=== PATIENT | male | born 1945 | race Caucasian/White ===

== ENCOUNTER 2024-08-25 04:45 | Inpatient (IN) | payer MEDICARE, OTHER ==
[~2024-08-25] VITALS: Ht 162.6 cm; Wt 80.2 kg
[2024-08-25 05:23] VITALS: RESP 11; O2SAT 95
[2024-08-25] MEDS: SODIUM CHLORIDE 0.9% 1,000 ML IV ONE (05:35)
[2024-08-25 07:35] LABS: Basophils # (auto) 0 10 ^3/uL (0-0.2); Basophils % (auto) 0.5 % (0.0-2.0); Eosinophils # (auto) 0.1 10 ^3/uL (0-0.8); Eosinophils % (auto) 1.6 % (0.0-7.0); Hematocrit 41.1 % (41.0-53.0); Hemoglobin 13.6 g/dL (13.5-17.5); Lymphocytes # (auto) 1.5 10 ^3/uL (0.4-5.4); Lymphocytes % (auto) 18.4 % (10.0-50.0); Mean Corpuscular Hemoglobin 27.9 pg (28.0-32.0); Mean Corpuscular Hgb Conc. 33.1 g/dL (32.0-36.0); Mean Corpuscular Volume 84.5 fL (80.0-100.0); Monocytes # (auto) 0.5 10 ^3/uL (0-1.3); Neutrophils # (auto) 5.7 10 ^3/uL (1.6-8.6); Neutrophils % (auto) 72.5 % (37.0-80.0); Nucleated Red Blood Cells % 0.1 %; Platelet Count (auto) 138 10^3/uL (140-450); Red Blood Cells 4.87 10^6/uL (4.5-5.90); Red Cell Distribution Width 16.3 % (11.8-14.3); White Blood Cell 7.9 10^3/uL (4.4-10.8)
[2024-08-25 07:46] LABS: Chloride 105 mmol/L (98-107); Potassium 4.4 mmol/L (3.5-5.1); Sodium 142 mmol/L (136-145)
[2024-08-25 07:47] LABS: Anion Gap 5 (5-15); Calcium 9.2 mg/dL (8.7-10.4); Carbon Dioxide 32 mmol/L (20-31)
[2024-08-25 07:52] LABS: BUN/Creatinine Ratio 15.4 (10.0-20.0); Blood Urea Nitrogen 12 mg/dL (9-23); Glucose 88 mg/dL (74-106)
[2024-08-25 08:17] VITALS: PULSE 63; RESP 18; O2SAT 94
[2024-08-25] MEDS ORDERED: ONDANSETRON HCL 4 MG/2 ML VIAL IV PRN (10:00)
[2024-08-25] MEDS ORDERED: DOCUSATE SOD 100 MG CAP PO PRN (10:00)
[2024-08-25] MEDS ORDERED: NITROGLYCERIN 0.4 MG SL TAB SL PRN (10:00)
[2024-08-25] MEDS: SODIUM CHLORIDE 0.9% 1,000 ML IV SCH (10:00)
[2024-08-25 10:03] LABS: Urine Bacteria None Seen /hpf (None Seen)
[2024-08-25 10:31] LABS: Urine Blood Negative /uL (Negative); Urine Clarity Clear (Clear); Urine Color Yellow (Yellow); Urine Mucus FEW (None Seen); Urine Protein, UAD Negative (Negative); Urine Specific Gravity 1.013 (1.001-1.035); Urine Urobilinogen Normal (Negative); Urine WBC 32 /hpf (0 - 3); Urine pH 5.5 (5.0-9.0)
[2024-08-25] MEDS: ACETAMINOPHEN 325 MG TAB PO ONE (12:00)
[2024-08-25] MEDS: HYDROcodone-ACET 5/325MG TAB PO PRN (12:00)
[2024-08-25 19:30] VITALS: PULSE 101; RESP 17; O2SAT 96
[2024-08-25] MEDS: TEMAZEPAM 15 MG CAP PO ONE (22:30)
[2024-08-26] VITALS (9 sets, daily range): BP systolic 102–145; BP diastolic 40–74; PULSE 61–99; RESP 15–18; TEMP 97.9–98.7; O2SAT 97–100
[2024-08-26] MEDS ORDERED: ALPR1TAB7 PO (05:10)
[2024-08-26] MEDS ORDERED: POTA-36 PO (05:10)
[2024-08-26] MEDS ORDERED: OXY5T GT (05:10)
[2024-08-26] MEDS ORDERED: [UNRECOGNIZED DRUG - CODE] MT (05:10)
[2024-08-26] MEDS ORDERED: PANT40TA2 PO (05:10)
[2024-08-26] MEDS ORDERED: FURO20TA3 PO (05:15)
[2024-08-26] MEDS ORDERED: AML5T PO (05:15)
[2024-08-26] MEDS ORDERED: CITA-73 PO (05:15)
[2024-08-26] MEDS ORDERED: CARV12.544 PO (05:15)
[2024-08-26] MEDS ORDERED: LISI40TA16 PO (05:15)
[2024-08-26] MEDS ORDERED: GABA400C PO (05:15)
[2024-08-26] MEDS ORDERED: ALBUAER3 IN (05:18)
[2024-08-26] MEDS ORDERED: MOMLQ GT (05:18)
[2024-08-26 06:06] LABS: Basophils # (auto) 0 10 ^3/uL (0-0.2); Basophils % (auto) 0.5 % (0.0-2.0); Eosinophils # (auto) 0.1 10 ^3/uL (0-0.8); Eosinophils % (auto) 2.1 % (0.0-7.0); Hematocrit 36.3 % (41.0-53.0); Hemoglobin 12.1 g/dL (13.5-17.5); Lymphocytes # (auto) 1.3 10 ^3/uL (0.4-5.4); Lymphocytes % (auto) 21.9 % (10.0-50.0); Mean Corpuscular Hgb Conc. 33.3 g/dL (32.0-36.0); Monocytes # (auto) 0.5 10 ^3/uL (0-1.3); Monocytes % (auto) 8.4 % (0.0-12.0); Neutrophils % (auto) 67.1 % (37.0-80.0); Platelet Count (auto) 114 10^3/uL (140-450); Red Blood Cells 4.32 10^6/uL (4.5-5.90)
[2024-08-26 06:33] LABS: Albumin 3.8 g/dL (3.2-4.8); Alkaline Phosphatase 80 U/L (46-116); Anion Gap 6 (5-15); Aspartate Aminotransferase 10 U/L (13-40); BUN/Creatinine Ratio 12.7 (10.0-20.0); Blood Urea Nitrogen 9 mg/dL (9-23); Calcium 8.9 mg/dL (8.7-10.4); Carbon Dioxide 32 mmol/L (20-31); Chloride 103 mmol/L (98-107); Glucose 79 mg/dL (74-106); Potassium 3.8 mmol/L (3.5-5.1); Sodium 141 mmol/L (136-145)
[2024-08-26 06:34] LABS: Bilirubin, Total 0.5 mg/dL (0.2-1.0); Total Protein 5.5 g/dL (5.7-8.2)
[2024-08-26 06:45] LABS: Alanine Aminotransferase < 9 U/L (7-40)
[2024-08-26] MEDS: cefTRIAXone 1GM/50ML D5W 50 ML IV SCH (12:00)
[2024-08-26 13:24] LABS: Folate (Folic Acid) 7.99 ng/mL (>5.38)
[2024-08-26] MEDS: NICOTINE 14 MG/24HR TOPICAL PATCH TD ONE (17:15)
[2024-08-27 06:17] LABS: Basophils # (auto) 0 10 ^3/uL (0-0.2); Basophils % (auto) 0.5 % (0.0-2.0); Eosinophils # (auto) 0.1 10 ^3/uL (0-0.8); Eosinophils % (auto) 1.4 % (0.0-7.0); Hematocrit 38.3 % (41.0-53.0); Hemoglobin 12.8 g/dL (13.5-17.5); Lymphocytes # (auto) 1.4 10 ^3/uL (0.4-5.4); Lymphocytes % (auto) 22.2 % (10.0-50.0); Mean Corpuscular Hemoglobin 27.9 pg (28.0-32.0); Mean Corpuscular Hgb Conc. 33.5 g/dL (32.0-36.0); Mean Corpuscular Volume 83.4 fL (80.0-100.0); Monocytes # (auto) 0.5 10 ^3/uL (0-1.3); Monocytes % (auto) 7.9 % (0.0-12.0); Neutrophils # (auto) 4.3 10 ^3/uL (1.6-8.6); Nucleated Red Blood Cells % 0.1 %; Platelet Count (auto) 123 10^3/uL (140-450); Red Blood Cells 4.59 10^6/uL (4.5-5.90); Red Cell Distribution Width 15.3 % (11.8-14.3); White Blood Cell 6.4 10^3/uL (4.4-10.8)
[2024-08-27 06:18] LABS: Anion Gap 7 (5-15); Carbon Dioxide 31 mmol/L (20-31); Chloride 103 mmol/L (98-107); Potassium 3.9 mmol/L (3.5-5.1); Sodium 141 mmol/L (136-145)
[2024-08-27 06:19] LABS: Calcium 9.5 mg/dL (8.7-10.4)
[2024-08-27 06:24] LABS: BUN/Creatinine Ratio 10.1 (10.0-20.0); Blood Urea Nitrogen 7 mg/dL (9-23); Glucose 88 mg/dL (74-106)
[2024-08-27 09:00] VITALS: BP 129/50; PULSE 65; RESP 16; TEMP 98.4; O2SAT 99
[2024-08-27] MEDS: ENOXAPARIN SOD 40 MG/0.4 ML SYRINGE SC SCH (09:04)
[2024-08-27] MEDS: NICOTINE 14 MG/24HR TOPICAL PATCH TD SCH (09:04)
[2024-08-27] MEDS: MUPIROCIN 2% OINT 15gm or 22gm FOR MRSA NARES EACHNOSTRI SCH (10:00)
[2024-08-27] MEDS ORDERED: NITR-87 PO (10:01)
[2024-08-27] MEDS ORDERED: MUPI2CRE17 EX (10:01)
[2024-08-27 12:48] VITALS: BP 131/58; PULSE 66; RESP 18; TEMP 98.3; O2SAT 100
[2024-08-27 16:42] VITALS: BP 131/58; PULSE 66; RESP 18; TEMP 98.3; O2SAT 100
[2024-08-27 17:00] VITALS: BP 156/61; PULSE 69; RESP 18; TEMP 98.2; O2SAT 98
== END 2024-08-27 18:00 | disposition home health service (06) | DRG 384 ==
LOC: EDBD 04:45 → ER 04:45 → OVERFLOW 09:54 → CENTRAL 23:36
PROVIDERS: ADMIT Internal Medicine Geriatric Medicine; ATTEND Internal Medicine Geriatric Medicine
DX: S00.93XA Contusion of unspecified part of head, initial encounter (principal); J96.10 Chronic respiratory failure, unspecified whether with hypoxia or hypercapnia; S09.90XA Unspecified injury of head, initial encounter; I11.0 Hypertensive heart disease with heart failure; J44.9 Chronic obstructive pulmonary disease, unspecified; W01.0XXA Fall on same level from slipping, tripping and stumbling without subsequent striking against object, initial encounter; N39.0 Urinary tract infection, site not specified; F17.210 Nicotine dependence, cigarettes, uncomplicated; I50.9 Heart failure, unspecified; E11.9 Type 2 diabetes mellitus without complications; Z88.1 Allergy status to other antibiotic agents; Z79.82 Long term (current) use of aspirin; Z88.5 Allergy status to narcotic agent; Y93.89 Activity, other specified; Y92.89 Other specified places as the place of occurrence of the external cause; Y99.8 Other external cause status; Z90.49 Acquired absence of other specified parts of digestive tract; Z99.3 Dependence on wheelchair
CPT/HCPCS: 36415; 70450; 71045; 80048; 80053; 81001; 82306; 82607; 82746; 83036; 84484; 85025; 87081; 93005; 97163; 99291; G0378